=== PATIENT | female | born 1960 | race Caucasian/White ===

== ENCOUNTER 2018-09-05 16:59 | Emergency (ER) | payer OTHER ==
[~2018-09-05] VITALS: Ht 162.6 cm; Wt 82.1 kg
[2018-09-05 17:04] VITALS: BP 131/84
--- NOTE | 2018-09-05 17:26 | NUR ---
C/O 10/10 STRONG, ACHEY LOWER BACK/LOWER ABDOMINAL PAIN AND NAUSEA X3 DAYS. PT DENIED FEVER, VOMITING & DIARRHEA, INJURY/TRAUMA. PT REPORTS OCCASIONAL DYSURIA. BED IN LOW POSITION, DAUGHTER AT BEDSIDE.
--- NOTE | 2018-09-05 19:23 | NUR ---
DR. FORD AT BEDSIDE FOR EVALUATION.
[2018-09-05] MEDS ORDERED: KETOROLAC 60 MG/2 ML VIAL IM ONE (19:30)
[2018-09-05 20:49] VITALS: BP 117/59
--- NOTE | 2018-09-05 20:49 | NUR ---
Patient discharged with v/s stable. Written and verbal after care instructions given and explained. Patient alert, oriented and verbalized understanding of instructions. Ambulatory with steady gait. All questions addressed prior to discharge. ID band removed. Patient advised to follow up with PMD. Rx of Prilosec 40mg, Motrin 800mg and Zofran 8mg given. Patient educated on indication of medication including possible reaction and side effects. Opportunity to ask questions provided and answered.
== END 2018-09-05 20:49 | disposition home or self-care (01) ==
LOC: MED 16:59
DX: M54.5 Low back pain (principal); R10.9 Unspecified abdominal pain
CPT/HCPCS: 81002; 81025; 96372; 99283; J1885